=== PATIENT | female | born 1980 | race Two or more races ===

== ENCOUNTER 2018-05-27 08:30 | Outpatient (CLI) | payer BC ==
--- NOTE | 2018-05-27 09:39 | CT ---
CT ABDOMEN AND PELVIS WITH IV CONTRAST: Indication: History of lower abdominal pain within the region of the rectum and vagina for 8 months. The patient is having vaginal bleeding. Comparison: 70 cc of Isovue 370. FINDINGS: No comparisons are available. The lung bases are clear. No focal hepatic lesion is evident. The spleen, pancreas, adrenal glands, a nd kidneys are normal appearing. There is a normal retrocecal appendix. There is a mild amount of retained stool within the colon. Small bowel is normal appearing. The bladder, rectum, and perirectal soft tissues are unremarkable. Small bone island is seen within the left aspect of the sacrum. No cute osseous abnormality is eviden t. IMPRESSION: 1. No CT explanation for the patient's lower abdominal pain. 2. Mild amount of retained stool within the colon. POS: [facility]
[2018-05-27] MEDS ORDERED: ISOVUE-370 76%-LOCM 1 ML ONE (13:31)
== END 2018-05-27 08:31 | disposition home or self-care (01) ==
LOC: BICCT 08:30
PROVIDERS: ATTEND Internal Medicine
DX: K21.9 Gastro-esophageal reflux disease without esophagitis (principal); R10.32 Left lower quadrant pain; K59.00 Constipation, unspecified
CPT/HCPCS: 74177

== ENCOUNTER 2018-07-03 08:48 | Outpatient (CLI) | payer BC ==
--- NOTE | 2018-07-03 11:30 | CT ---
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 FINDINGS: The thoracic aorta demonstrates normal caliber without aneurysm or dissection. The central pulmonary arterial vasculature is well opacified without filling defects to suggest central pulmonary embolism. No pleural or pericardial effusions are seen. No pneumothoraces, pulmonary nodules, or focal areas o f consolidation are identified. There are degenerative changes in the spine. Low density lesions are seen in the left lobe of the thyroid gland. IMPRESSION: 1. No evidence of thoracic aortic aneurysm or dissection. 2. Thyroid lesions. Evaluation with ultrasound would be helpful. POS: [facility]
== END 2018-07-03 08:49 | disposition home or self-care (01) ==
LOC: CT 08:48
PROVIDERS: ATTEND Internal Medicine Cardiovascular Disease
DX: Q79.6 Ehlers-Danlos syndromes (principal); R55 Syncope and collapse; E07.9 Disorder of thyroid, unspecified
CPT/HCPCS: 71275

== ENCOUNTER 2018-12-02 16:31 | Emergency (ER) | payer BC ==
[2018-12-02 17:48] LABS: Bilirubin Negative (Negative); Blood, Urine Negative (Negative); Clarity CLOUDY (Clear); Glucose, Urine (Dipstick) Negative (Negative); Leukocyte Negative (Negative); Nitrite Negative (Negative); Protein, Urine (Dipstick) Negative (Neg-Trace); Urobilinogen 0.2 mg/dL (0.2-1.0)
[2018-12-02 18:11] LABS: #Eosinphils 0.3 thou/uL (0.0-0.7); #Lymphocytes 1.8 thou/uL (1.20-3.40); #Monocytes 0.4 thou/uL (0.11-0.59); #Neutrophils 4.4 thou/uL (1.40-6.50); %Basophils 0.5 % (0.0-1.0); %Eosinophils 4.5 % (0.0-10.0); %Lymphocytes 26.3 % (21.0-51.0); %Monocytes 5.7 % (0.0-10.0); Mean Corpuscular HGB CONC 32.5 g/dL (32.0-36.0); Mean Corpuscular Hemoglobin 26.8 pg (27.0-31.0); Mean Corpuscular Volume 82.3 fL (78.0-98.0); Mean Platelet Volume 6.9 fL (7.4-10.4); Platelet Count 420 thou/uL (130-400); RBC Distribution Width 12.7 % (11.5-14.5); Red Blood Cell (RBC) Count 5.23 mill/uL (4.20-5.40)
[2018-12-02 18:33] LABS: ALT (SGPT) 11 U/L (8-55); AST (SGOT) 15 U/L (5-34); Albumin 4.2 g/dL (3.5-5.0); Alkaline Phosphatase 64 U/L (40-150); Anion Gap 13 mmol/L (10-20); BUN (Urea Nitrogen) 12 mg/dL (7.0-18.7); Bilirubin, Total 0.3 mg/dL (0.2-1.2); Calc. Creatinine Clearance 0 mL/min (70-130); Calcium 10.6 mg/dL (7.8-10.44); Carbon Dioxide 24 mmol/L (22-29); Chloride 106 mmol/L (98-107); Estimated GFR-MDRD 59; Globulin 3.8 g/dL (2.4-3.5); Glucose 84 mg/dL (70-105); Potassium 4.1 mmol/L (3.5-5.1); Sodium 139 mmol/L (136-145)
[2018-12-02 18:40] LABS: Pregnancy Test - Urine (BHCG) Negative (Negative); Pregu Control Background? CLEAR/WHITE (CLR/WHITE); Pregu Control Bar Appear? YES (CONTROL BAR)
--- NOTE | 2018-12-02 18:40 | RAD ---
AP view chest. HISTORY: Fatigue. AP view chest obtained. The lungs are well aerated. No evidence of active intrathoracic disease seen. No evidence of effusions, pneumonia or pneumothorax seen. IMPRESSION: Unremarkable AP view chest.
--- NOTE | 2018-12-02 19:33 | CT ---
CT brain. HISTORY: Fatigue and decreased vision. Noncontrast enhanced CT images of the brain obtained. The brain is unremarkable. No evidence of intra cranial masses, hemorrhages strokes or contusion seen. IMPRESSION: Unremarkable CT brain.
[2018-12-02] MEDS ORDERED: diphenhydrAMINE 50 MG/ML VIAL ONE (19:45)
[2018-12-02] MEDS ORDERED: Acetaminophen 500 MG TAB ONE (19:45)
[2018-12-02] MEDS ORDERED: Metoclopramide HCl 10 MG/2 ML VIAL ONE (19:45)
== END 2018-12-02 20:53 | disposition home or self-care (01) ==
LOC: ERS 16:31
DX: R53.83 Other fatigue (principal); H57.11 Ocular pain, right eye; R51 Headache; I38 Endocarditis, valve unspecified; M19.90 Unspecified osteoarthritis, unspecified site; Z79.899 Other long term (current) drug therapy
CPT/HCPCS: 36415; 70450; 71045; 80053; 81003; 81025; 85025; 93005; 96361; 96365; 96375; J1200; J2765

== ENCOUNTER 2019-01-28 15:00 | Outpatient (CLI) | payer BC ==
--- NOTE | 2019-01-28 16:35 | ULT ---
ULTRASOUND THYROID STANDARD: 01/28/19 HISTORY: Hypothyroidism. COMPARISON: None. FINDINGS: Real time costello scale and color evaluation of the thyroid was performed. Normal background vascularity. Isthmus measures 3 mm AP dimension. Right lobe measures 4.8 x 1.5 x 1. 3 cm and the left lobe measures 5.6 x 1.9 x 2 cm. Total of four nodules in the left lobe of the thyroid. None in the isthmus or right lobe. In the inte rpolar region is a wider than tall, solid isoechoic nodule with well-defined margins without echogeni c foci measuring 1.6 x 1.1 x 1.1 cm. This is TI-RADS 3: Mildly suspicious. Given its size, follow-up in six months/one year is recommended. Adjacent to this is a smaller 0.9 x 0.9 x 1 cm wider than tall, isoechoic solid nodule with well-defi edson margins without echogenic foci. This is also TI-RADS 3: Mildly suspicious. In the lateral interpolar region is a 1.5 x 1.1 x 1.4 cm solid isoechoic mass which is wider than [place] with well-defined margins without echogenic foci. This is a TI-RADS 3: Mildly suspicious. Given its size, follow-up recommended. Replacing the majority of the inferior pole left lobe is a 3 x 2 x 1.8 cm mixed solid and cystic iso echoic wider than tall nodule with smooth margins without echogenic foci. This is TI-RADS 2: Nonsusp icious. IMPRESSION: Multiple nodules for which follow-up in six months/one year is recommended. POS: [facility]
== END 2019-01-28 15:01 | disposition home or self-care (01) ==
LOC: BICULT 15:00
PROVIDERS: ATTEND Internal Medicine
DX: E04.2 Nontoxic multinodular goiter (principal)
CPT/HCPCS: 76536

== ENCOUNTER 2019-09-24 13:07 | Outpatient (CLI) | payer BC ==
--- NOTE | 2019-09-24 13:31 | RAD ---
PA AND LATERAL VIEWS CHEST: HISTORY: Dyspnea. FINDINGS: The cardiomediastinum is normal. The lungs are expanded and clear. No acute osseous abnormalities a re seen. IMPRESSION: No radiographic evidence of acute cardiopulmonary process. POS: [facility]
== END 2019-09-24 13:08 | disposition home or self-care (01) ==
LOC: BICRAD 13:07
PROVIDERS: ATTEND Internal Medicine
DX: K21.9 Gastro-esophageal reflux disease without esophagitis (principal); R13.10 Dysphagia, unspecified; R06.02 Shortness of breath; Q79.60 Ehlers-Danlos syndrome, unspecified; K59.00 Constipation, unspecified; E53.8 Deficiency of other specified B group vitamins
CPT/HCPCS: 71046

== ENCOUNTER 2020-12-01 15:15 | Outpatient (CLI) | payer BC ==
[2020-12-02 00:42] LABS: SARS-CoV-2 PCR by NAA Not Detected (NotDetected)
== END 2020-12-01 15:16 | disposition home or self-care (01) ==
LOC: LABBT 15:15
PROVIDERS: ATTEND Internal Medicine
DX: Z20.822 Contact with and (suspected) exposure to COVID-19 (principal)
CPT/HCPCS: 87635; U0003; U0005

== ENCOUNTER → 2020-12-06 | Day surgery (SDC) | payer BC | LOC: ENDO/OP 08:23 | PROVIDERS: ATTEND Internal Medicine | DX: K21.9 Gastro-esophageal reflux disease without esophagitis (principal); R13.10 Dysphagia, unspecified; M19.90 Unspecified osteoarthritis, unspecified site; J45.909 Unspecified asthma, uncomplicated; Q79.60 Ehlers-Danlos syndrome, unspecified; M35.9 Systemic involvement of connective tissue, unspecified; Z79.899 Other long term (current) drug therapy; Z88.2 Allergy status to sulfonamides; Z88.8 Allergy status to other drugs, medicaments and biological substances | CPT/HCPCS: 91010 ==

== ENCOUNTER 2024-03-02 06:08 | Day surgery (SDC) | payer BC ==
[2024-03-01 11:40] VITALS: BMI 38.2
[~2024-03-02 06:08] MED LIST: EPINEPHrine 0.3 MG in Ophthalmic Irrigation Solution 500 ML IRR SCH
[2024-03-02] MEDS ORDERED: PHENYLephrine 2.5% Ophth Soln 15 ml Bottle ONE (06:28)
[2024-03-02] MEDS ORDERED: Cyclopentolate 1% Opth Drop 2 ML BOT ONE (06:28)
[2024-03-02] MEDS ORDERED: fentaNYL PF 100 MCG/2 ML SYRINGE ONE (07:17)
[2024-03-02] MEDS ORDERED: PROPOFOL 20 ML ONE (07:17)
[2024-03-02] MEDS ORDERED: Sodium Chloride 0.9% 100 ML ONE (07:23)
[2024-03-02] MEDS ORDERED: Dexmedetomidine 200 MCG/2 ML VIAL ONE (07:23)
[2024-03-02] MEDS ORDERED: Lidocaine 1% PF 5 ML VIAL ONE (07:25)
[2024-03-02] MEDS ORDERED: Midazolam HCl 2 mg/2 ml Vial ONE (07:31)
[2024-03-02] MEDS ORDERED: Lidocaine 4% PF 5 ML AMP ONE (08:04)
[2024-03-02] MEDS ORDERED: Bupivacaine 0.75% 10 ML VIAL ONE (08:04)
[2024-03-02] MEDS ORDERED: Indocyanine Green 25 MG/10 ML VIAL ONE (08:04)
[2024-03-02] MEDS ORDERED: Maxitrol 0.1% Opth Oint 3.5 GM TUBE ONE (08:04)
[2024-03-02] MEDS ORDERED: Triamcinolone 40 MG/ML VIAL ONE (08:04)
[2024-03-02] MEDS ORDERED: CEFAZOLIN 1 GM VIAL ONE (08:04)
== END 2024-03-02 08:59 | disposition home or self-care (01) ==
LOC: SDC 06:08
PROVIDERS: ATTEND Ophthalmology Retina Specialist
PROC: 08T53ZZ Resection of Left Vitreous, Percutaneous Approach (ICD-10-PCS; principal; 2024-03-02)
DX: H35.371 Puckering of macula, right eye (principal); Z88.8 Allergy status to other drugs, medicaments and biological substances; Z91.040 Latex allergy status; Z88.2 Allergy status to sulfonamides
CPT/HCPCS: J0171; J0690; J2250; J2704; J3301; J3490